=== PATIENT | male | born 1940 | race Caucasian/White ===

== ENCOUNTER 2025-07-05 18:02 | Emergency (ER) | payer OTHER ==
[~2025-07-05] VITALS: Ht 157.5 cm; Wt 50.0 kg
[2025-07-05 18:09] VITALS: O2SAT 99
[2025-07-05] MEDS: LIDOCAINE HCL/EPINEPHRINE 1%-EPI 1:100,000 20ML VIAL INFIL SCH (18:45)
[2025-07-05] MEDS ORDERED: LIDOCAINE HCL/EPINEPHRINE 1%-EPI 1:100,000 10ML VIAL INFIL ONE (18:45)
[2025-07-05] MEDS: HYDROCODONE/ACETAMINOPHEN 5/325MG TABLET PO ONE (18:59)
[2025-07-05] MEDS ORDERED: BO1 TP (22:23)
[2025-07-05] MEDS ORDERED: CEPH500T MT (22:23)
[2025-07-05] MEDS: BACITRACIN ZINC OINT UDPKT TOP ONE (22:44)
[2025-07-05 23:23] VITALS: BP 148/67; PULSE 64; RESP 12; TEMP 37; O2SAT 97
== END 2025-07-05 23:25 | disposition home or self-care (01) ==
LOC: ER 18:02
DX: S01.511A Laceration without foreign body of lip, initial encounter (principal); I10 Essential (primary) hypertension; E11.9 Type 2 diabetes mellitus without complications; X58.XXXA Exposure to other specified factors, initial encounter; Y93.89 Activity, other specified; Y92.410 Unspecified street and highway as the place of occurrence of the external cause; Y99.8 Other external cause status
CPT/HCPCS: 99285; 70450; 82962; 70486; 12011; J2004

== ENCOUNTER 2025-07-12 17:16 | Emergency (ER) | payer OTHER ==
[~2025-07-12] VITALS: Ht 172.7 cm; Wt 70.0 kg
[~2025-07-12 17:16] MED LIST: BO1 TP; CEPH500T MT
[2025-07-12 17:28] VITALS: TEMP 37; O2SAT 99
[2025-07-12 19:18] VITALS: BP 138/59; PULSE 66; RESP 15; O2SAT 100
== END 2025-07-12 19:19 | disposition home or self-care (01) ==
LOC: ER 17:16
DX: S01.511D Laceration without foreign body of lip, subsequent encounter (principal); E11.9 Type 2 diabetes mellitus without complications; I10 Essential (primary) hypertension; X58.XXXD Exposure to other specified factors, subsequent encounter
CPT/HCPCS: 99282